=== PATIENT | female | born 1980 | race Caucasian/White ===

== ENCOUNTER 2022-02-14 08:41 | Day surgery (SDC) | payer MEDICAID ==
[~2022-02-14] VITALS: Ht 170.2 cm; Wt 65.9 kg
[2022-02-14 08:50] VITALS: BP 118/67
[2022-02-14] MEDS ORDERED: NO HOME MEDS (08:52)
[2022-02-14] MEDS ORDERED: MIDAZolam 1 MG/ML 5ML VIAL ONE (08:56)
[2022-02-14] MEDS ORDERED: fentaNYL/PF 50MCG/1 ML 2ML syringe ONE (08:56)
[2022-02-14] MEDS ORDERED: diphenhydrAMINE 50 mg/ml inj ONE (10:03)
[2022-02-14 10:38] VITALS: BP 106/75
[2022-02-14 10:48] VITALS: BP 104/58
[2022-02-14 10:58] VITALS: BP 110/69
== END 2022-02-14 11:30 | disposition home or self-care (01) ==
LOC: GI LAB 08:41
PROVIDERS: ATTEND Internal Medicine Gastroenterology
DX: K59.04 Chronic idiopathic constipation (principal); K64.1 Second degree hemorrhoids; R10.12 Left upper quadrant pain
CPT/HCPCS: 45378; 99152; 99153; J1200; J2250; J3010; J7030; Z7512; A4620